=== PATIENT | male | born 1950 | race Caucasian/White ===

== ENCOUNTER 2022-01-25 12:02 | Observation (INO) ==
[2022-01-25] MEDS ORDERED: CATAPRES TAB 0.1 MG PO PRN (12:17)
[2022-01-25] MEDS ORDERED: LASIX IVP ONE (12:20)
[2022-01-25] MEDS ORDERED: ROXICODONE TAB 15 MG PO PRN (12:24)
[2022-01-25 12:49] LABS: BASOPHILS # (AUTO) 0.1 X10^3/uL (0.0-0.1); BASOPHILS % (AUTO) 1.1 % (0.2-1.0); EOSINOPHILS # (AUTO) 0.1 x10^3/uL (0.0-0.2); EOSINOPHILS % (AUTO) 0.9 % (0.9-2.9); HEMATOCRIT 23.9 % (42.0-54.0); HEMOGLOBIN 7.7 g/dL (13.5-18.0); LYMPHOCYTES # (AUTO) 0.8 X10^3/uL (1.3-2.9); MEAN CORPUSCULAR HGB CONC 32.1 g/dL (33.0-35.0); MEAN CORPUSCULAR VOLUME 71.7 fL (80.0-100.0); MEAN PLATELET VOLUME 7.2 fL (7.4-11.0); MONOCYTES # (AUTO) 0.8 x10^3/uL (0.3-0.8); MONOCYTES % (AUTO) 6.8 % (0.0-13.0); NEUTROPHILS # (AUTO) 10.6 x10^3/uL (2.2-4.8); NEUTROPHILS % (AUTO) 85.2 % (42.0-75.0); RED BLOOD COUNT 3.34 X10^6/uL (4.7-6.0); RED CELL DISTRIBUTION WIDTH 20.1 % (11.6-16.5); WHITE BLOOD COUNT 12.4 X10^3/uL (3.6-10.0)
[2022-01-25 13:13] LABS: ALBUMIN 2.5 g/dL (3.4-5.0); CALCIUM 9.5 mg/dL (8.5-10.1); CARBON DIOXIDE 33.3 mmol/L (21-32); COR CA(FOR HYPOALB) 10.7 mg/dL (8.5-10.1); CREATININE 2.29 mg/dL (0.70-1.30); TOTAL PROTEIN 7.2 g/dL (6.4-8.2)
[2022-01-25 13:20] LABS: ANISOCYTOSIS 1+; HYPOCHROMASIA 1+; MICROCYTOSIS SLIGHT; PLATELET MORPHOLOGY COMMENT NORMAL (NORMAL)
[2022-01-25] MEDS ORDERED: APRESOLINE TAB 25 MG PO SCH (14:00)
--- NOTE | 2022-01-25 14:28 | RAD ---
CHEST, 1 VIEWHISTORY: CHFStudy: Single view of the chest.Comparison:NoneFindings:Cardiomegaly.Pulmona ry edema like pattern. Small a moderate effusion. Diffuse increased reticulation of the lungs. Osseous structures demonstrate no acute abnormality.IMPRESSION:1. Cardiomegaly with pulmonary edema and small to moderate right effusion.Electronically signed by: JEAN CONTI (Jan 25, 2022 14:26:58)
[2022-01-25] MEDS ORDERED: GLUCOPHAGE PO SCH (17:00)
[2022-01-25 17:46] VITALS: BP 166/70
[2022-01-25] MEDS ORDERED: LASIX IVP SCH (21:00)
[2022-01-25] MEDS ORDERED: ZOCOR TAB 20 MG PO SCH (21:00)
[2022-01-25] MEDS ORDERED: COREG TAB 25 MG PO SCH (21:00)
[2022-01-26] MEDS ORDERED: PROTONIX TAB 40 MG PO SCH (09:00)
== END 2022-01-25 18:00 | disposition short-term general hospital (02) ==
LOC: ICU
PROVIDERS: ADMIT Obstetrics & Gynecology Obstetrics; ATTEND Obstetrics & Gynecology Obstetrics
DX: E87.6 Hypokalemia; R06.02 Shortness of breath; E78.00 Pure hypercholesterolemia, unspecified; N18.9 Chronic kidney disease, unspecified; Z95.1 Presence of aortocoronary bypass graft; E11.22 Type 2 diabetes mellitus with diabetic chronic kidney disease; I13.0 Hypertensive heart and chronic kidney disease with heart failure and stage 1 through stage 4 chronic kidney disease, or unspecified chronic kidney disease; R07.89 Other chest pain; R74.8 Abnormal levels of other serum enzymes; G47.00 Insomnia, unspecified